=== PATIENT | female | born 1960 | race Caucasian/White ===

== ENCOUNTER 2018-09-30 14:00 | Emergency (ER) | payer OTHER ==
[~2018-09-30] VITALS: Ht 162.6 cm; Wt 81.8 kg
[2018-09-30] MEDS ORDERED: LORA10TA7 PO (14:15)
[2018-09-30] MEDS ORDERED: VITAMINS A & D 5 GM OINTMENT PACKET TP ONE (15:45)
[2018-09-30 15:53] VITALS: BP 128/78
== END 2018-09-30 15:55 | disposition home or self-care (01) ==
LOC: EMS 14:00
DX: R21 Rash and other nonspecific skin eruption (principal); Z88.5 Allergy status to narcotic agent; Z88.8 Allergy status to other drugs, medicaments and biological substances